=== PATIENT | female | born 1960 | race Caucasian/White ===

== ENCOUNTER → 2017-04-26 | Outpatient (CLI) | payer BC ==
--- NOTE | 2017-04-27 07:09 | MM ---
Reason for exam: screening (asymptomatic). Last mammogram was performed 1 year ago. History: Family history of breast cancer in mother. Physical Findings: A clinical breast exam by your physician is recommended on an annual basis and results should be correlated with mammographic findings. MG Screening Mammo Implant/CAD Bilateral CC and MLO view(s) were taken. Prior study comparison: April 23, 2016, bilateral MG screening mammo implant/CAD. December 06, 2013, mammogram, performed at [facility]. There are scattered fibroglandular densities. Bilateral breast prothesis. No significant changes when compared with prior studies. ASSESSMENT: Benign, BI-RAD 2 RECOMMENDATION: Routine screening mammogram of both breasts in 1 year.
== END | disposition home or self-care (01) ==
LOC: RADMAMWWP 06:46
PROVIDERS: ATTEND Family Medicine
DX: Z12.31 Encounter for screening mammogram for malignant neoplasm of breast (principal)

== ENCOUNTER 2018-02-11 08:20 | Day surgery (SDC) | payer BC ==
[2018-02-10 08:24] VITALS: BMI 31.6
[~2018-02-11 08:20] MED LIST: LACTATED RINGERS 1,000 ML IV SCH
[2018-02-11 09:30] VITALS: TEMP 97.4
[2018-02-11 09:40] LABS: Glucose,Whole Blood 92 mg/dL (75-99)
[2018-02-11] MEDS ORDERED: LIDOCAINE 1% 20 ML VIAL (10MG/ML) FOR IV START INTRADERMA ONE (09:41)
[2018-02-11] MEDS ORDERED: PROPOFOL 10 MG/ML 20 ML VIAL IV ONE (10:02)
--- NOTE | 2018-02-11 10:21 | P.PCN ---
Date of Procedure: 02/11/18 Procedure(s) Performed: BRIEF HISTORY: Patient is a 57-year-old pleasant white female, scheduled for an elective colonoscopy as a part of screening for colorectal neoplasia. PROCEDURE PERFORMED: Colonoscopy. PREOPERATIVE DIAGNOSIS: Screening for colon cancer. IV sedation per Anesthesia. PROCEDURE: After informed consent was obtained, the patient, was brought into the endoscopy unit. IV sedation was administered by Anesthesia under continuous monitoring. Digital rectal examination was normal. Initially the Olympus CF- 160 flexible video colonoscope was then inserted in the rectum, gradually advanced into the cecum without any difficulty. Careful examination was performed as the scope was gradually being withdrawn. Ileocecal valve and the appendiceal orifice were visualized and appeared normal. Prep was excellent. Mucosa of the cecum, ascending colon, transverse colon, descending colon, sigmoid colon, and rectum appeared normal. Retroflexion was performed in the rectum and no lesions were seen. The patient tolerated the procedure well. IMPRESSION: Normal-appearing colon from rectum to cecum with no evidence of colorectal neoplasia. RECOMMENDATIONS: Findings of this examination were discussed with the patient as well as a family. She was advised to have a repeat screening colonoscopy in 10 years..
[2018-02-11 10:27] LABS: Glucose,Whole Blood 85 mg/dL (75-99)
[2018-02-11 10:33] VITALS: RESP 18
[2018-02-11 10:47] VITALS: BP 116/78; PULSE 75
== END 2018-02-11 11:08 | disposition home or self-care (01) ==
LOC: ORWHC2ENDO 08:20
PROVIDERS: ATTEND Internal Medicine Gastroenterology
DX: Z12.11 Encounter for screening for malignant neoplasm of colon (principal); I25.10 Atherosclerotic heart disease of native coronary artery without angina pectoris; I10 Essential (primary) hypertension; E78.5 Hyperlipidemia, unspecified; E11.9 Type 2 diabetes mellitus without complications; F39 Unspecified mood [affective] disorder; Z79.84 Long term (current) use of oral hypoglycemic drugs; Z79.899 Other long term (current) drug therapy
CPT/HCPCS: 81025; G0121; J2704

== ENCOUNTER → 2018-04-29 | Outpatient (CLI) | payer BC ==
--- NOTE | 2018-05-03 08:16 | MM ---
Reason for exam: screening (asymptomatic). Last mammogram was performed 1 year ago. History: Patient is postmenopausal. Family history of breast cancer in mother. Silicone gel implants, 2011. Physical Findings: A clinical breast exam by your physician is recommended on an annual basis and results should be correlated with mammographic findings. MG 3D Screen Mammo Imp/Cad Bilateral CC, MLO, and ID view(s) were taken. Prior study comparison: April 26, 2017, bilateral MG screening mammo implant/CAD. April 23, 2016, bilateral MG screening mammo implant/CAD. There are scattered fibroglandular densities. There is no discrete abnormality. Bilateral subpectoral implants redemonstrated. ASSESSMENT: Benign, BI-RAD 2 RECOMMENDATION: Routine screening mammogram of both breasts in 1 year.
== END | disposition home or self-care (01) ==
LOC: RADMAMWWP 12:27
PROVIDERS: ATTEND Family Medicine
DX: Z12.31 Encounter for screening mammogram for malignant neoplasm of breast (principal)
CPT/HCPCS: 77063; 77067

== ENCOUNTER → 2019-07-10 | Outpatient (CLI) | payer BC ==
--- NOTE | 2019-07-11 11:02 | MM ---
Reason for exam: screening (asymptomatic). Last mammogram was performed 1 year and 2 months ago. History: Patient is postmenopausal. Family history of breast cancer in mother. Silicone gel implants, 2011. MG Screening Mammo Implant/CAD Bilateral CC and MLO view(s) were taken. Prior study comparison: April 29, 2018, bilateral MG 3d screen mammo imp/cad. April 26, 2017, bilateral MG screening mammo implant/CAD. The breast tissue is heterogeneously dense. This may lower the sensitivity of mammography. Bilateral breast prothesis. No significant new finding when compared with prior studies. ASSESSMENT: Benign, BI-RAD 2 RECOMMENDATION: Follow-up diagnostic mammogram of both breasts in 1 year.
== END | disposition home or self-care (01) ==
LOC: RADMAMWWP 06:49
PROVIDERS: ATTEND Family Medicine
DX: Z12.31 Encounter for screening mammogram for malignant neoplasm of breast (principal)
CPT/HCPCS: 77067

== ENCOUNTER → 2020-10-11 | Outpatient (CLI) | payer BC ==
--- NOTE | 2020-10-15 10:47 | MM ---
Reason for exam: screening (asymptomatic). Last mammogram was performed 1 year and 3 months ago. History: Patient is postmenopausal. Family history of breast cancer in mother. Silicone gel implants, 2011. Physical Findings: A clinical breast exam by your physician is recommended on an annual basis and results should be correlated with mammographic findings. MG Screening Mammo Implant/CAD Bilateral CC, MLO, and ID view(s) were taken. Prior study comparison: July 10, 2019, bilateral MG screening mammo implant/CAD. April 29, 2018, bilateral MG 3d screen mammo imp/cad. There are scattered fibroglandular densities. Bilateral retropectoral silicone implants. No significant changes when compared with prior studies. ASSESSMENT: Negative, BI-RAD 1 RECOMMENDATION: Routine screening mammogram of both breasts in 1 year.
== END | disposition home or self-care (01) ==
LOC: RADMAMWWP 07:04
PROVIDERS: ATTEND Family Medicine
DX: Z12.31 Encounter for screening mammogram for malignant neoplasm of breast (principal)
CPT/HCPCS: 77067

== ENCOUNTER → 2021-11-28 | Outpatient (CLI) | payer BC ==
--- NOTE | 2021-12-01 12:04 | MM ---
Reason for exam: screening (asymptomatic). Last mammogram was performed 1 year and 2 months ago. History: Patient is postmenopausal. Family history of breast cancer in mother. Silicone gel implants, 2011. Physical Findings: A clinical breast exam by your physician is recommended on an annual basis and results should be correlated with mammographic findings. MG Screening Mammo Implant/CAD Bilateral CC, MLO, and ID view(s) were taken. Prior study comparison: October 11, 2020, bilateral MG screening mammo implant/CAD. July 10, 2019, bilateral MG screening mammo implant/CAD. The breast tissue is heterogeneously dense. This may lower the sensitivity of mammography. Bilateral breast prothesis. No significant changes when compared with prior studies. ASSESSMENT: Benign, BI-RAD 2 RECOMMENDATION: Routine screening mammogram of both breasts in 1 year.
== END | disposition home or self-care (01) ==
LOC: RADMAMWWP 07:01
PROVIDERS: ATTEND Family Medicine
DX: Z12.31 Encounter for screening mammogram for malignant neoplasm of breast (principal)
CPT/HCPCS: 77067

== ENCOUNTER → 2021-11-29 | Outpatient (CLI) | payer BC ==
--- NOTE | 2021-11-29 13:49 | MR ---
EXAMINATION TYPE: MR cspine/lspine wo con DATE OF EXAM: 11/29/2021 COMPARISON: None HISTORY: Weakness/cold in right hand/fingers for 6 months. Low back pain/ coldness that radiates down left leg for 4 months. Lipoma far lateral right side of back. TECHNIQUE: Multiplanar, multisequence imaging of the lumbar spine is performed without IV contrast. FINDINGS: The craniovertebral junction relationships and prevertebral soft tissues are normal. The cervical vertebral segments are normal in height and alignment and there is no fracture or sublux ation. The disc spaces are well-maintained in height there is no significant degenerative disc. There is mil d broad-based disc bulge and spondylosis C5-6 level resulting in mild mass effect on the ventral aspe ct of thecal sac. Secondary to disc bulge and mild degenerative change of the uncovertebral joint, th ere is mild neural foraminal stenosis at C5-6 bilaterally left greater than right There is no cervical stenosis in the cervical cord is normal in size and signal intensity IMPRESSION: 1. Mild degenerative disc disease at the C5-6 level as described above. 2. No significant degenerative disc disease or focal disc herniation 3. No cervical stenosis or cervical cord abnormality. 4. Cervical vertebral segments are normal in height and alignment.
== END | disposition home or self-care (01) ==
LOC: RADMRIMAIN 12:02
PROVIDERS: ATTEND Family Medicine
DX: D17.1 Benign lipomatous neoplasm of skin and subcutaneous tissue of trunk (principal); M50.322 Other cervical disc degeneration at C5-C6 level
CPT/HCPCS: 72141; 72148

== ENCOUNTER 2022-04-17 18:43 | Observation (INO) | payer BC ==
[2022-04-17] MEDS ORDERED: ASPIRIN 81 MG PO STA (19:38)
--- NOTE | 2022-04-17 19:42 | ED ---
General Adult HPI - General Chief complaint: Recheck/Abnormal Lab/Rx Stated complaint: Sent by post MRI Time Seen by Provider: 04/17/22 19:07 Source: patient, family Mode of arrival: wheelchair Limitations: no limitations - History of Present Illness Initial comments: Dictation was produced using [employer] dictation software. please excuse any gram matical, word or spelling errors. Chief Complaint: 61-year-old female presents emergency department for strokelike symptoms History of Present Illness: Is a 61-year-old female she presents to the emergency room for strokelike symptoms. Patient has a history of diabetes, dyslipidemia and hypertension. Starting yesterday patient was having slurred speech. This morning her slurred speech was significantly worse. She states her primary care doctor where she had a stat CT and stat MRI ordered by primary care doctor. Daughter is at the bedside report that patient had significantly noticeable slurred speech. Patient has no history of CVA. Daughter is feeling patient still has mildlyslurred speech though not as significant as earlier today. There is no history of extremity issue, aphasia, ataxia or facial droop. After the MRI she was directed to come to the emergency room until MRI results were made available. The ROS documented in this emergency department record has been reviewed and confirmed by me. Those systems with pertinent positive or negative responses have been documented in the HPI. All other systems are other negative and/or noncontributory. PHYSICAL EXAM: General Impression: Alert and oriented x3, not in acute distress HEENT: Normocephalic atraumatic, extra-ocular movements intact, pupils equal and reactive to light bilaterally, mucous membranes moist. Cardiovascular: Heart regular rate and rhythm Chest: Able to complete full sentences, no retractions, no tachypnea Abdomen: abdomen soft, non-tender, non-distended, no organomegaly Musculoskeletal: Pulses present and equal in all extremities, no peripheral edema Motor: no focal deficits noted Neurological: CN II-XII grossly intact, no focal motor or sensory deficits noted, NIH 0 Skin: Intact with no visualized rashes Psych: Normal affect and mood ED course: 61-year-old female presents to the emergency department clinical presentation suspicious for transient ischemic attack. vital signs upon arrival are within acceptable limits. Patient has no focal neurologic deficits at the bedside. MRI was reviewed and showed no acute findings. CBC and BMP unremarkable. Patient be admitted for neurology consultation. She is given 324 mg of aspirin. Case discussed with Dr. Marquez was went except patient's Behalf of [facility], [facility]. - Related Data Home Medications Medication Instructions Recorded Confirmed ALPRAZolam [Xanax] 1 mg PO HS 02/10/18 04/17/22 Atorvastatin [Lipitor] 10 mg PO DAILY 02/10/18 04/17/22 lisinopriL [Zestril] 2.5 mg PO DAILY 02/10/18 04/17/22 traZODone HCL [Desyrel] 200 mg PO HS 02/10/18 04/17/22 Dapagliflozin/Metformin HCl 1 tab PO DAILY 04/17/22 04/17/22 [Xigduo Xr 10 mg-1,000 mg Tab] Meloxicam [Mobic] 7.5 mg PO BID 04/17/22 04/17/22 Allergies Allergy/AdvReac Type Severity Reaction Status Date / Time No Known Allergies Allergy Verified 04/17/22 20:09 Review of Systems ROS Statement: Those systems with pertinent positive or pertinent negative responses have been documented in the HPI. ROS Other: All systems not noted in ROS Statement are negative. Past Medical History Past Medical History: Diabetes Mellitus, Hyperlipidemia, Hypertension, Myocardial Infarction ([place]) Additional Past Medical History / Comment(s): "silent mi" Last Myocardial Infarction Date:: unknown History of Any Multi-Drug Resistant Organisms: None Reported Past Surgical History: Breast Surgery, Tubal Ligation Additional Past Surgical History / Comment(s): benign cyst on cervix removed Past Anesthesia/Blood Transfusion Reactions: No Reported Reaction Past Psychological History: Anxiety Past Alcohol Use History: Occasional Past Drug Use History: None Reported - Past Family History Mother Family Medical History: Cancer Additional Family Medical History / Comment(s): breast General Exam Limitations: no limitations Course Vital Signs 04/17/22 18:44 Pulse Rate 65 Respiratory 18 Rate Blood Pressure 122/81 O2 Sat by Pulse 97 Oximetry Medical Decision Making - Lab Data Result diagrams: 04/17/22 20:21 04/17/22 20:21 Disposition Clinical Impression: TIA (transient ischemic attack) Disposition: ADMITTED IP TO THIS [facility] Condition: Fair Decision Time: 20:52
[2022-04-17] MEDS ORDERED: SODIUM CHLORIDE 0.9% 1,000 ML IV SCH (20:15)
[2022-04-17 20:39] LABS: African American GFR (CKD) >90 (>60 ml/min/1.73 sqM); Anion Gap 10 mmol/L; Blood Urea Nitrogen 23 mg/dL (7-17); Calcium 9.1 mg/dL (8.4-10.2); Carbon Dioxide 23 mmol/L (22-30); Chloride 104 mmol/L (98-107); Glucose 118 mg/dL (74-99); Non-African American GFR(CKD) >90 (>60 ml/min/1.73 sqM); Potassium 3.9 mmol/L (3.5-5.1); Sodium 137 mmol/L (137-145)
[2022-04-17 20:47] LABS: Basophils % (A) 1 %; Eosinophils # (A) 0.1 k/uL (0-0.7); Eosinophils % (A) 2 %; HCT 43.2 % (34.0-46.0); HGB 14.1 gm/dL (11.4-16.0); Lymphocytes # (A) 1.9 k/uL (1.0-4.8); Lymphocytes % (A) 29 %; MCH 31.2 pg (25.0-35.0); MCHC 32.7 g/dL (31.0-37.0); MCV 95.6 fL (80.0-100.0); Mean Platelet Volume 7.4; Monocytes # (A) 0.2 k/uL (0-1.0); Monocytes % (A) 4 %; Neutrophils # (A) 4.1 k/uL (1.3-7.7); Neutrophils % (A) 62 %; Platelet Count 256 k/uL (150-450); RBC 4.52 m/uL (3.80-5.40); RDW 12.8 % (11.5-15.5); WBC 6.6 k/uL (3.8-10.6)
[2022-04-17 20:53] LABS: INR 0.9 (<1.2); Partial Thromboplastin Time 22.1 sec (22.0-30.0); Prothrombin Time 9.9 sec (9.0-12.0)
[2022-04-17] MEDS ORDERED: ALPRAZolam 1 MG TAB PO SCH (23:30)
[2022-04-17] MEDS ORDERED: traZODone HCL 100 MG TAB PO SCH (23:30)
--- NOTE | 2022-04-18 00:37 | P.HPIM ---
History of Present Illness H&P Date: 04/17/22 The patient is a 61-year-old female with a PMH of type II DM, hypertension, hyperlipidemia, coronary artery disease status post [place], spinal DJD, carpal tunnel syndrome who presents to the emergency room for slurred speech. The history is supplemented by the daughters at the bedside. The patient's family members reports that they have noticed a gradual decline in the patient over the past 3 months. Patient reports diffuse weakness, new onset left foot drop, poor balance with multiple falls, occasional slurring of her speech, and occasional right facial droop. The family reports that they noticed her speech was more slurred than usual this morning, for which she was seen at her PCPs office who immediately ordered a brain MRI. The report was discussed with the physician on-call for her PCP who advised her to go to the emergency room. Patient also reports an unspecified amount of weight loss over the past 3 months. Denies headaches, visual disturbances, numbness, or tingling. Reports following with a PM and R physician as well as an orthopedic surgeon for planned spinal surgeries for long-standing DJD of her spine. Reports also having seen a neurologist as an outpatient 1-2 months ago for her left foot drop which she reports was deemed secondary to spinal nerve impingement. Denies any acute lower back pain. Reports long-standing back pain which is unchanged, and rated as 0 out of 10 at the time of interview. Also denied focal weakness. Denies chest discomfort, palpitations, shortness of breath, nausea, vomiting, fever, chills. Brain MRI revealed no evidence of infarct with a minimal cerebellar tonsillar ectopia noted. NIH score in the emergency room was 0. Patient was given aspirin. Review of systems: Pertinent positives and negatives as discussed in HPI, a complete review of systems was performed and all other systems are negative. Physical examination: General: non toxic, no distress, appears at stated age, obese Derm: no unusual rashes/lesions no unusual ecchymoses, warm, dry Head: atraumatic, normocephalic, symmetric Eyes: EOMI, no lid lag, anicteric sclera, pupils equal round reactive to light ENT: Nose and ears atraumatic, no thrush, no pharyngeal erythema Neck: No thyromegaly, no cervical lymphadenopathy, trachea midline, supple Mouth: no lip lesion, mucus membranes moist Cardiovascular: S1S2 reg, no murmur, positive posterior tibial pulse bilateral, no edema, capillary refill less than 2 seconds Lungs: CTA bilateral, no rhonchi, no rales , no accessory muscle use Abdominal: soft, nontender to palpation, no guarding, no appreciable organomegaly, normal bowel sounds Ext: no gross muscle atrophy, muscle strength 3/5 RUE, 4/5 LUE, 3+/5 matti LEs, left foot drop Neuro: CN II-XI grossly intact except for mild R facial droop, light touch intact all 4 extremities, finger to nose within normal limits Psych: Alert, oriented, appropriate affect Assessment/plan Multiple neurological complaints including left foot drop, facial asymmetry, slurred speech -Broad differentials including demyelinating syndromes versus possible vasculit is in setting of weight loss -Neurology consult -Obtain ESR/CRP -Check TRIXIE -PT consult Chronic conditions: HTN, HLD, Type 2 DM -C/w home meds -BERTRAM with FS DVT prophylaxis -Heparin subq The patient is admitted with an anticipated less than 2 midnight stay for evaluation of slurred speech CODE STATUS: Full Code Discussed with: Patient Anticipated discharge date: in am Anticipated discharge place: Home Past Medical History Past Medical History: Diabetes Mellitus, Hyperlipidemia, Hypertension, Myocardial Infarction ([place]) Additional Past Medical History / Comment(s): "silent mi" Last Myocardial Infarction Date:: unknown History of Any Multi-Drug Resistant Organisms: None Reported Past Surgical History: Breast Surgery, Tubal Ligation Additional Past Surgical History / Comment(s): benign cyst on cervix removed Past Anesthesia/Blood Transfusion Reactions: No Reported Reaction Past Psychological History: Anxiety Past Alcohol Use History: Occasional Past Drug Use History: None Reported - Past Family History Mother Family Medical History: Cancer Additional Family Medical History / Comment(s): breast Medications and Allergies Home Medications Medication Instructions Recorded Confirmed Type ALPRAZolam [Xanax] 1 mg PO HS 02/10/18 04/17/22 History Atorvastatin [Lipitor] 10 mg PO DAILY 02/10/18 04/17/22 History lisinopriL [Zestril] 2.5 mg PO DAILY 02/10/18 04/17/22 History traZODone HCL [Desyrel] 200 mg PO HS 02/10/18 04/17/22 History Dapagliflozin/Metformin HCl 1 tab PO DAILY 04/17/22 04/17/22 History [Xigduo Xr 10 mg-1,000 mg Tab] Meloxicam [Mobic] 7.5 mg PO BID 04/17/22 04/17/22 History Allergies Allergy/AdvReac Type Severity Reaction Status Date / Time No Known Allergies Allergy Verified 04/17/22 20:09 Physical Exam Vitals: Vital Signs Pulse Resp BP Pulse Ox 04/17/22 21:52 81 18 134/74 97 04/17/22 18:44 65 18 122/81 97 Intake and Output 04/17/22 04/17/22 04/17/22 06:59 14:59 22:59 Other: Weight 160 kg Results CBC & Chem 7: 04/17/22 20:21 04/17/22 20:21 Labs: Abnormal Lab Results - Last 24 Hours (Table) 04/17/22 Range/Units 20:21 BUN 23 H (7-17) mg/dL Creatinine 0.47 L (0.52-1.04) mg/dL Glucose 118 H (74-99) mg/dL
[2022-04-18 07:28] LABS: Glucose,Whole Blood 127 mg/dL (75-99)
[2022-04-18] MEDS: INSULIN ASPART (NovoLOG) 100 UNIT/ML VIAL SQ SCH ×3 (07:37→16:55)
[2022-04-18 08:20] VITALS: RESP 16; TEMP 97.9
[2022-04-18 08:55] LABS: Chol/HDL Ratio 2.11 Ratio; LDL Cholesterol,Calculated 63.4 mg/dL (0.0-131.0)
[2022-04-18] MEDS ORDERED: ATORVASTATIN 10 MG TAB PO SCH (09:00)
[2022-04-18] MEDS ORDERED: ASPIRIN 81 MG PO SCH (09:00)
[2022-04-18 11:56] LABS: Glucose,Whole Blood 128 mg/dL (75-99)
[2022-04-18 13:38] VITALS: BP 120/79; PULSE 68
--- NOTE | 2022-04-18 14:40 | US ---
EXAMINATION TYPE: US carotid duplex BILAT DATE OF EXAM: 04/18/2022 COMPARISON: NONE CLINICAL HISTORY: TIA. EXAM MEASUREMENTS: RIGHT: Peak Systolic Velocity (PSV) cm/sec ----- Right CCA: 89.0 ----- Right ICA: 79.9 ----- Right ECA: 115.0 ICA/CCA ratio: 0.90 RIGHT: End Diastole cm/sec ----- Right CCA: 26.0 ----- Right ICA: 21.4 ----- Right ECA: 17.2 LEFT: Peak Systolic Velocity (PSV) cm/sec ----- Left CCA: 78.6 ----- Left ICA: 181.0 ----- Left ECA: 107.0 ICA/CCA ratio: 2.3 LEFT: End Diastole cm/sec ----- Left CCA: 18.9 ----- Left ICA: 67.8 ----- Left ECA: 11.1 VERTEBRALS (direction of flow): Right Vertebral: Antegrade Left Vertebral: Antegrade Rhythm: Normal No significant stenosis seen. Elevated left ICA velocities are felt to be due to tortuousity. IMPRESSION: There is antegrade flow in the vertebral arteries. The images and measurements suggest less than 20% stenosis in both internal carotid arteries. Criteria for Assigning % of Stenosis / Diameter reduction (Estimation based on the indirect measurements of the internal carotid artery velocities (ICA PSV). 1. Normal (no stenosis)=ICA PSV < 125 cm/s: ratio < 2.0: ICA EDV<40 cm/s. 2. Less than 50% stenosis=ICA PSV < 125 cm/s: ratio < 2.0: ICA EDV<40 cm/s. 3. 50 to 69% stenosis=ICA PSV of 125 to 230 cm/s: ration 2.0 ? 4.0: ICA EDV 40-100 cm/s. 4. Greater than 70% stenosis to near occlusion= ICA PSV > 230 cm/s: ratio > 4.0: ICA EDV > 100 cm/s. 5. Near occlusion= ICA PSV velocities may be low or undetectable: variable ratio and ICA EDV. 6. Total occlusion=unable to detect flow.
--- NOTE | 2022-04-18 16:25 | P.PN ---
Subjective Progress Note Date: 04/18/22 History of Present Illness per H&P The patient is a 61-year-old female with a PMH of type II DM, hypertension, hyperlipidemia, coronary artery disease status post [place], spinal DJD, carpal tunnel syndrome who presents to the emergency room for slurred speech. The history is supplemented by the daughters at the bedside. The patient's family members reports that they have noticed a gradual decline in the patient over the past 3 months. Patient reports diffuse weakness, new onset left foot drop, poor balance with multiple falls, occasional slurring of her speech, and occasional right facial droop. The family reports that they noticed her speech was more slurred than usual this morning, for which she was seen at her PCPs office who immediately ordered a brain MRI. The report was discussed with the physician on-call for her PCP who advised her to go to the emergency room. Patient also reports an unspecified amount of weight loss over the past 3 months. Denies headaches, visual disturbances, numbness, or tingling. Reports following with a PM and R physician as well as an orthopedic surgeon for planned spinal surgeries for long-standing DJD of her spine. Reports also having seen a neurologist as an outpatient 1-2 months ago for her left foot drop which she reports was deemed secondary to spinal nerve impingement. Denies any acute lower back pain. Reports long-standing back pain which is unchanged, and rated as 0 out of 10 at the time of interview. Also denied focal weakness. Denies chest discomfort, palpitations, shortness of breath, nausea, vomiting, fever, chills. Brain MRI revealed no evidence of infarct with a minimal cerebellar tonsillar ectopia noted. NIH score in the emergency room was 0. Patient was given aspirin. Interval history: Patient was examined at the bedside. She is alert oriented 3. She denies any chest pain or shortness of breath. Physical examination: General: non toxic, no distress, appears at stated age Derm: warm, dry Head: atraumatic, normocephalic, symmetric Eyes: EOMI, no lid lag, anicteric sclera Mouth: no lip lesion, mucus membranes moist Cardiovascular: S1S2 reg, no murmur, positive posterior tibial pulse bilateral, Lungs: CTA bilateral, no rhonchi, no rales , no accessory muscle use Abdominal: soft, nontender to palpation, no guarding, no appreciable organomegaly Ext: no gross muscle atrophy, no edema, no contractures Neuro: CN II-XI grossly intact, no focal neuro deficits Psych: Alert, oriented, appropriate affect Assessment/plan #TIA -Patient presented with Slurred speech and left facial droop -Symptoms resolved -MRI without any evidence of stroke -2-D echo ordered -Carotid Doppler ordered -Neurology consult -Resume aspirin and statins -Normal CRP -Check TRIXIE -A1c 6.5 and LDL is 63 -PT consult #Chronic back pain with left foot drop -Patient scheduled for lumbar spine MRI with EMG as an outpatient on Wednesday #Type 2 diabetes mellitus -Controlled A1c is 6.5 #Hypertension -Controlled #Dyslipidemia DVT prophylaxis -Heparin subq CODE STATUS: Full Code Objective - Vital Signs Vital signs: Vital Signs Temp 97.9 F 04/18/22 13:37 Pulse 68 04/18/22 13:37 Resp 16 04/18/22 13:37 BP 120/79 04/18/22 13:37 Pulse Ox 99 04/18/22 13:37 FiO2 Intake & Output 04/17/22 04/18/22 04/18/22 18:59 06:59 18:59 Intake Total 118 Balance 118 Weight 160 kg 72.7 kg Intake: Oral 118 Other: Voiding Method Toilet Toilet # Voids 1 2 - Labs CBC & Chem 7: 04/17/22 20:21 04/17/22 20:21 Labs: Abnormal Lab Results - Last 24 Hours (Table) 04/16/22 04/17/22 04/18/22 Range/Units 20:21 20:21 01:30 BUN 23 H (7-17) mg/dL Creatinine 0.47 L (0.52-1.04) mg/dL Glucose 118 H (74-99) mg/dL POC Glucose (mg/dL) (75-99) mg/dL Hemoglobin A1c 6.5 H (0.0-6.0) % HDL Cholesterol 70.50 H (40.00-60.00) mg/dL 04/18/22 04/18/22 Range/Units 07:26 11:54 BUN (7-17) mg/dL Creatinine (0.52-1.04) mg/dL Glucose (74-99) mg/dL POC Glucose (mg/dL) 127 H 128 H (75-99) mg/dL Hemoglobin A1c (0.0-6.0) % HDL Cholesterol (40.00-60.00) mg/dL
[2022-04-18 16:40] LABS: Glucose,Whole Blood 109 mg/dL (75-99)
--- NOTE | 2022-04-18 18:03 | P.DS ---
Providers Date of admission: 04/17/22 20:03 Expected date of discharge: 04/18/22 Attending physician: Quinton Marquez MD Consults: 04/17/22 20:03 Consult Physician Routine Consulting Provider: Osito Silva Consult Reason/Comments: tia Do you want consulting provider notified?: Yes Primary care physician: [facility] Course: History of Present Illness per H&P The patient is a 61-year-old female with a PMH of type II DM, hypertension, hyperlipidemia, coronary artery disease status post CO, spinal DJD, carpal tunnel syndrome who presents to the emergency room for slurred speech. The history is supplemented by the daughters at the bedside. The patient's family members reports that they have noticed a gradual decline in the patient over the past 3 months. Patient reports diffuse weakness, new onset left foot drop, poor balance with multiple falls, occasional slurring of her speech, and occasional right facial droop. The family reports that they noticed her speech was more slurred than usual this morning, for which she was seen at her PCPs office who immediately ordered a brain MRI. The report was discussed with the physician on-call for her PCP who advised her to go to the emergency room. Patient also reports an unspecified amount of weight loss over the past 3 months. Denies headaches, visual disturbances, numbness, or tingling. Reports following with a PM and R physician as well as an orthopedic surgeon for planned spinal surgeries for long-standing DJD of her spine. Reports also having seen a neurologist as an outpatient 1-2 months ago for her left foot drop which she reports was deemed secondary to spinal nerve impingement. Denies any acute lower back pain. Reports long-standing back pain which is unchanged, and rated as 0 out of 10 at the time of interview. Also denied focal weakness. Denies chest discomfort, palpitations, shortness of breath, nausea, vomiting, fever, chills. Brain MRI revealed no evidence of infarct with a minimal cerebellar tonsillar ectopia noted. NIH score in the emergency room was 0. Patient was given aspirin. Interval history: Patient was examined at the bedside. She is alert oriented 3. She denies any chest pain or shortness of breath. Physical examination: General: non toxic, no distress, appears at stated age Derm: warm, dry Head: atraumatic, normocephalic, symmetric Eyes: EOMI, no lid lag, anicteric sclera Mouth: no lip lesion, mucus membranes moist Cardiovascular: S1S2 reg, no murmur, positive posterior tibial pulse bilateral, Lungs: CTA bilateral, no rhonchi, no rales , no accessory muscle use Abdominal: soft, nontender to palpation, no guarding, no appreciable organomegaly Ext: no gross muscle atrophy, no edema, no contractures Neuro: CN II-XI grossly intact, left foot drop. Left lower similar fasciculation Psych: Alert, oriented, appropriate affect Assessment/plan #Slurred speech, left lower extremity fasciculation with left foot drop -Patient presented with Slurred speech and left facial droop -Acute CVA has been ruled out -MRI without any evidence of stroke -2-D echo ordered--pending result -Carotid Doppler ordered without significant stenosis -Neurology concerned about the possibility of ALS versus mononeuritis multiplex -Neurology recommended outpatient neuromuscular specialist at [facility] or [facility] -Resume aspirin and statins -Normal CRP -Check TRIXIE -B12 pending -A1c 6.5 and LDL is 63 -Neurologist cleared the patient for discharge to follow-up with her physiatry is next Wednesday for EMG and possibly referral to a neuromuscular specialist -Patient's daughter was at the bedside all the questions was answered. #Chronic back pain with left foot drop -Patient scheduled for lumbar spine MRI with EMG as an outpatient on Wednesday -Workup in progress -Patient needs neuromuscular specialist referral #Type 2 diabetes mellitus -Controlled A1c is 6.5 #Hypertension -Controlled #Dyslipidemia DVT prophylaxis -Heparin subq Patient Condition at Discharge: Fair Plan - Discharge Summary New Discharge Prescriptions: New Aspirin 81 mg PO DAILY #30 tab Continue lisinopriL [Zestril] 2.5 mg PO DAILY Atorvastatin [Lipitor] 10 mg PO DAILY traZODone HCL [Desyrel] 200 mg PO HS ALPRAZolam [Xanax] 1 mg PO HS Dapagliflozin/Metformin HCl [Xigduo Xr 10 mg-1,000 mg Tab] 1 tab PO DAILY Meloxicam [Mobic] 7.5 mg PO BID Discharge Medication List ALPRAZolam [Xanax] 1 mg PO HS 02/10/18 [History] Atorvastatin [Lipitor] 10 mg PO DAILY 02/10/18 [History] lisinopriL [Zestril] 2.5 mg PO DAILY 02/10/18 [History] traZODone HCL [Desyrel] 200 mg PO HS 02/10/18 [History] Dapagliflozin/Metformin HCl [Xigduo Xr 10 mg-1,000 mg Tab] 1 tab PO DAILY 04/17/22 [History] Meloxicam [Mobic] 7.5 mg PO BID 04/17/22 [History] Aspirin 81 mg PO DAILY #30 tab 04/18/22 [Rx] Follow up Appointment(s)/Referral(s): Abel Baker MD [Primary Care Provider] - 1-2 days Patient Instructions/Handouts: Transient Ischemic Attack (DC)
[2022-04-19 05:41] LABS: Protein, Total 6.4 g/dL (6.2-8.2)
[2022-04-19 05:44] LABS: Immunoglobulin M 44.5 mg/dL (40.0-280.0)
--- NOTE | 2022-04-19 11:28 | CA ---
Transthoracic Echo Report Name: Trinidad Chappell Age: 61 Gender: F : 1960 Exam Date: 04/18/2022 13:57 Exam Location: [facility] Ht (in): 62 Wt (lb): 160 Ordering Physician: Quinton Marquez MD Attending/Referring Phys: Switch Technician Maryjane Choi RDCS Procedure CPT: Indications: tia Cardiac Hx: Breast inplants, tia Technical Quality: Fair Contrast 1: Total Dose (mL): Contrast 2: N/A Total Dose (mL): MEASUREMENTS (Male / Female) Normal Values 2D ECHO LV Diastolic Diameter PLAX 4.0 cm 4.2 - 5.9 / 3.9 - 5.3 cm LV Systolic Diameter PLAX 2.8 cm IVS Diastolic Thickness 1.1 cm 0.6 - 1.0 / 0.6 - 0.9 cm LVPW Diastolic Thickness 1.3 cm 0.6 - 1.0 / 0.6 - 0.9 cm LV Relative Wall Thickness 0.6 RV Internal Dim ED PLAX 2.5 cm LA Systolic Diameter LX 3.1 cm 3.0 - 4.0 / 2.7 - 3.8 cm M-MODE Aortic Root Diameter MM 2.8 cm LA Systolic Diameter MM 3.2 cm LA Ao Ratio MM 1.1 MV E Point Septal Separation 0.8 cm AV Cusp Separation MM 2.2 cm DOPPLER MV Area PHT 4.8 cm??? Mitral E Point Velocity 67.9 cm/s Mitral A Point Velocity 61.7 cm/s Mitral E to A Ratio 1.1 MV Deceleration Time 157.1 ms MV E' Velocity 6.5 cm/s Mitral E to MV E' Ratio 10.4 FINDINGS Left Ventricle Normal Left ventricular size, mild wall thickness, systolic function with no obvious regional wall motion abnormalities. Right Ventricle Normal right ventricular size and function. Right Atrium Normal right atrial size. Left Atrium Normal left atrial size. Mitral Valve Structurally normal mitral valve. Mild mitral regurgitation. Aortic Valve Trileaflet aortic valve. Tricuspid Valve Structurally normal tricuspid valve. Mild tricuspid regurgitation. Pulmonic Valve Pulmonic valve not well visualized. Pericardium Echo free space anterior to the right ventricle likely represents a fat pad. Aorta Aortic root and proximal ascending aorta not well visualized. CONCLUSIONS #1. Normal left ventricle size, but 2. Mild concentric left ventricle hypertrophy #3. Mild mitral and tricuspid regurgitation Previewed by: Dr. Dora Newby MD (Electronically Signed) Final Date: 19 April 2022 11:27
--- NOTE | 2022-04-20 17:02 | P.CNNES ---
History of Present Illness Consult date: 04/18/22 Requesting physician: Lei Sanchez Reason for Consult: TIA History of Present Illness: Patient is a 61-year-old female came to the hospital yesterday at 6:43 PM to rule out TIA. Patient's daughter was also present, and both of them provided with a history. Patient has developed left foot drop around December 2021. However in the last few months it has progressively got worse. She has fallen quite many times in last few months. In the last 3 months her health has been deteriorating. She had undergone right ulnar nerve decompression surgery on 04/01/2022. She claims that she also has carpal tunnel syndrome bilaterally. She also states that she has been scheduled for a back surgery for fusion but has not been scheduled yet. She has very poor balance and falls easily. She has been using a cane for last few months. Patient stated that she has been having some twitching of her eyelid muscles going on for last couple years (although patient's daughter believes it is more recent onset in the last few months). Sometimes she gets Sergio horses. Her left leg is always cold. Patient's family and patient herself has noticed some intermittent slurred speech, occasional right facial drooping. Patient's legs are so weak, that she has to manually lift her leg to go up steps. She has difficulty going up steps. Vital signs on arrival blood pressure 122/81 pulse rate 65 temperature 97.7. Blood tests revealed normal CBC, PT/PTT, normal electrolytes, BUN and creatinine are normal. C-reactive protein is normal <0.5, ESR 2. Patient had an MRI of the lumbar spine on 11/29/2021 which revealed multilevel degenerative disc disease mild from T12 through L5 and moderate to severe at the L5-S1 level. No lumbar disc herniation or spinal stenosis. Mild neural foraminal stenosis at L5-S1 level on the left. Mild osteoarthritis of the facet joints in the lower lumbar spine. MRI cervical spine without contrast 11/29/2021 revealed mild degenerative disc disease at C5 6 level. No significant degenerative disc disease or focal disc herniation. No cervical stenosis or cervical cord abnormality. I personally reviewed MRI of the cervical and lumbar spine and agree with the findings. No significant spinal stenosis. Patient has history of diabetes since she was in her 40s, for last 20 years. She has hypertension, hyperlipidemia. She is a nonsmoker drinks alcohol very occasionally. Review of Systems Positive for fatigue, weight loss, fasciculations, some dysarthria. No dysphagia. No difficulty breathing. She has muscle weakness, no problem with controlling urine. Patient has carpal tunnel syndrome. All other review of systems reviewed, unremarkable except as per HPI. Past Medical History Past Medical History: Diabetes Mellitus, Hyperlipidemia, Hypertension, Myocardial Infarction ([place]) Additional Past Medical History / Comment(s): "silent mi" Last Myocardial Infarction Date:: unknown History of Any Multi-Drug Resistant Organisms: None Reported Past Surgical History: Breast Surgery, Tubal Ligation Additional Past Surgical History / Comment(s): benign cyst on cervix removed Past Anesthesia/Blood Transfusion Reactions: No Reported Reaction Past Psychological History: Anxiety Past Alcohol Use History: Occasional Past Drug Use History: None Reported - Past Family History Mother Family Medical History: Cancer Additional Family Medical History / Comment(s): breast Medications and Allergies Home Medications Medication Instructions Recorded Confirmed Type ALPRAZolam [Xanax] 1 mg PO HS 02/10/18 04/17/22 History Atorvastatin [Lipitor] 10 mg PO DAILY 02/10/18 04/17/22 History lisinopriL [Zestril] 2.5 mg PO DAILY 02/10/18 04/17/22 History traZODone HCL [Desyrel] 200 mg PO HS 02/10/18 04/17/22 History Dapagliflozin/Metformin HCl 1 tab PO DAILY 04/17/22 04/17/22 History [Xigduo Xr 10 mg-1,000 mg Tab] Meloxicam [Mobic] 7.5 mg PO BID 04/17/22 04/17/22 History Aspirin 81 mg PO DAILY #30 tab 04/18/22 Rx Allergies Allergy/AdvReac Type Severity Reaction Status Date / Time No Known Allergies Allergy Verified 04/17/22 20:09 Physical Examination - Vital Signs Vital Signs: Vital Signs Temp Pulse Pulse Resp BP BP BP 04/18/22 13:37 97.9 F 68 16 120/79 04/18/22 07:00 97.9 F 69 16 134/85 04/18/22 02:53 97.8 F 66 18 108/69 04/17/22 22:39 97.7 F 79 16 129/81 04/17/22 21:52 81 18 134/74 04/17/22 18:44 65 18 122/81 Pulse Ox 04/18/22 13:37 99 04/18/22 07:00 100 04/18/22 02:53 96 04/17/22 22:39 98 04/17/22 21:52 97 04/17/22 18:44 97 Intake and Output 04/18/22 04/18/22 04/18/22 06:59 14:59 22:59 Intake Total 118 Balance 118 Intake: Oral 118 Other: Voiding Method Toilet Toilet # Voids 1 2 Weight 72.7 kg Patient is a late middle aged female, in no acute distress. Patient is alert awake oriented to time place and person. Speech is very minim ally dysarthric more for lingual and pharyngeal, less for labial. No aphasia. Patient can name and repeat very well. Attention, concentration and fund of knowledge is adequate. On cranial examination, pupils are equal, round and reacting to light, visual frost are full on confrontation, extraocular muscles are intact with no nystagmus. Face is symmetric, tongue protrudes to the midline. Palatal elevation and sensation normal, hearing and shoulder shrug normal, facial sensation normal. No fasciculations noted in the tongue. On muscle strength testing, there is no pronator drift and the strength is (right/left) deltoid 5/5, biceps 5/5, triceps 5/5, cash applications associate 4-/4-. In the lower extremities hip flexion is 5/4, adduction 5/5, abduction 5/5, ankle dorsiflexion 5/2, inversion 5/5, peronei 5/0, plantar flexion 5/4-, toe extension 4/0. Deep tendon reflexes are (right/left) biceps 2+/2, brachioradialis 2+/2, triceps ---/2+, knee 3+/3+, ankles 2/2, plantars are flat bilaterally. Sensory to touch is equal with no neglect. Cerebellar function showed no ataxia for [id number] testing. Tone of muscles normal and bulk of muscles grossly normal. Patient has visible fasciculations over bilateral quadriceps, and calf muscles. No fasciculations noted in the upper extremities. Gait not checked. On general examination, there is no carotid bruit or murmur, S1-S2 audible. Abd omen is soft nontender. No organomegaly, bowel sounds present. Chest is clear. Peripheral pulses are present. No edema. Results - Laboratory Findings CBC and BMP: 04/17/22 20:21 04/17/22 20:21 Abnormal Lab Findings: Abnormal Labs 04/16/22 04/17/22 04/18/22 20:21 20:21 01:30 BUN 23 H Creatinine 0.47 L Glucose 118 H POC Glucose (mg/dL) Hemoglobin A1c 6.5 H HDL Cholesterol 70.50 H 04/18/22 04/18/22 07:26 11:54 BUN Creatinine Glucose POC Glucose (mg/dL) 127 H 128 H Hemoglobin A1c HDL Cholesterol Assessment and Plan Assessment: * 61-year-old female presents with a three-month history of progressive decline, left foot drop and generalized weakness, difficulty going up steps, and more recent onset of intermittent slurring of speech. Examination revealed asymmetric weakness, most involving the left lower extremity distally. Also revealed fasciculations involving multiple myotomes of proximal and distal muscles of lower limbs (not involving the upper extremities or the tongue muscles), although patient is noticing frequent twitching of her eyelid muscles. Examination showed brisk reflexes in the upper and lower limbs. 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 Differential also includes multifocal motor neuropathy, mononeuritis multiplex, although later two would not explain dysarthria. * Diabetes Plan: * Recommend patient undergo EMG and nerve conduction studies of upper and lower extremities including bulbar and thoracic EMG to evaluate for motor neuron disease versus other possibilities as mentioned. Patient should follow-up at neuromuscular department in [facility] or [facility]. * Carotid Doppler revealed antegrade flow in the vertebral arteries. Images in measurement suggest less than 20% stenosis in both ICAs. * MRI of brain from yesterday revealed no evidence of intracranial mass or a cute/subacute infarct. Minimal cerebellar tonsillar ectopia. I personally reviewed MRI with the findings. * Hemoglobin A1c 6.5 * Lipid panel with cholesterol 149, LDL 63, HDL 70 and triglycerides 75. * We will check B12, folate, quantitative immunoglobulins, immunofixation electrophoresis, TRIXIE to start with. Further testing may be carried out at the neuromuscular center. * Patient can be discharged and the blood test can be followed up as an outpatient. Discussed with primary physician. Also discussed with patient and her daughter in very detail. Addendum 04/20/2022: Her B12 is 907, folate 13.0, CK normal 79, TRIXIE negative. Quantitative immunoglobulins are normal. Serum protein electrophoresis and immunofixation electrophoresis pending.
[2022-04-21 15:42] LABS: Albumin 4.22 g/dL (3.80-4.90); Gamma Globulin 0.72 g/dL (0.70-1.50)
== END 2022-04-18 18:20 | disposition home or self-care (01) ==
LOC: EC 18:43 → 6NMEDSUR 20:03
PROVIDERS: ADMIT Internal Medicine; ATTEND Internal Medicine
DX: G45.9 Transient cerebral ischemic attack, unspecified (principal); R25.3 Fasciculation; M21.372 Foot drop, left foot; G89.29 Other chronic pain; M54.9 Dorsalgia, unspecified; E11.9 Type 2 diabetes mellitus without complications; I10 Essential (primary) hypertension; E78.5 Hyperlipidemia, unspecified; I25.10 Atherosclerotic heart disease of native coronary artery without angina pectoris; I25.2 Old myocardial infarction; M19.90 Unspecified osteoarthritis, unspecified site; G56.00 Carpal tunnel syndrome, unspecified upper limb; R29.6 Repeated falls; I08.1 Rheumatic disorders of both mitral and tricuspid valves; E66.9 Obesity, unspecified; Z68.29 Body mass index [BMI] 29.0-29.9, adult; M47.819 Spondylosis without myelopathy or radiculopathy, site unspecified; M51.36 Other intervertebral disc degeneration, lumbar region; M51.37 Other intervertebral disc degeneration, lumbosacral region; M48.07 Spinal stenosis, lumbosacral region; M50.322 Other cervical disc degeneration at C5-C6 level; R53.83 Other fatigue; R63.4 Abnormal weight loss; F41.9 Anxiety disorder, unspecified; Z79.899 Other long term (current) drug therapy; Z79.1 Long term (current) use of non-steroidal anti-inflammatories (NSAID); Z79.84 Long term (current) use of oral hypoglycemic drugs; Z79.82 Long term (current) use of aspirin; Z80.3 Family history of malignant neoplasm of breast
CPT/HCPCS: 99284; 36415; 93306; 80061; 80048; 85652; 82607; 82550; 82746; 85025; 85610; 85730; 86140; 82784 ×3; 84165; 86038; 86334; 83036; 93880; G0378 ×2

== ENCOUNTER → 2022-04-17 | Outpatient (CLI) | payer BC ==
--- NOTE | 2022-04-17 18:24 | MR ---
EXAMINATION TYPE: MR brain wo con DATE OF EXAM: 04/17/2022 5:16 PM COMPARISON: None. CLINICAL INDICATION:Female, 61 years old with history of Arnold-Chiari Syndrome; TECHNIQUE: Multi planar, multi sequence imaging was performed through the brain including: T1, T2, In version recovery, Diffusion weighted imaging, and gradient echo imaging. No gadolinium was given. FINDINGS: The burns-white junctions, ventricular system, and cisterns appear unremarkable. Midline structures sh ow no abnormality. Diffusion-weighted imaging shows no evidence of restricted diffusion. The suscepti bility weighted images do not reveal any evidence for micro-hemorrhage. Minimal cerebellar tonsillar ectopia up to 1-2 mm. The bone marrow signal is within normal limits. The paranasal sinuses and globes are unremarkable. IMPRESSION: No evidence of intracranial mass or acute/subacute infarct. Minimal cerebellar tonsillar ectopia.
== END | disposition home or self-care (01) ==
LOC: RADMRIMAIN 16:39
PROVIDERS: ATTEND Family Medicine
DX: R47.81 Slurred speech (principal); Q07.00 Arnold-Chiari syndrome without spina bifida or hydrocephalus
CPT/HCPCS: 70551

== ENCOUNTER 2022-09-20 09:25 | Emergency (ER) | payer BC, MEDICARE ==
--- NOTE | 2022-09-20 09:31 | ED ---
General Adult HPI - General Chief complaint: Fall Stated complaint: Fall Time Seen by Provider: 09/20/22 09:27 - History of Present Illness Initial comments: This is a 61-year-old female who presents emergency pertinent with a past medical history significant for ALS. Patient comes in today she states that she turned she lost her balance and fell hit the back of her head on the tub. Patient states the area is tender just behind the left ear. Patient denies any loss of consciousness. Patient denies being days. Patient denies any neck pain. Patient denies any numbness weakness. Patient denies any extremity injury. Patient denies any back chest injury. Patient denies any other problems at this time. Patient states at no time did she have any shortness of breath chest pain palpitations or lightheadedness or near syncopal episode. - Related Data Home Medications Medication Instructions Recorded Confirmed ALPRAZolam [Xanax] 1 mg PO HS 02/10/18 04/17/22 Atorvastatin [Lipitor] 10 mg PO DAILY 02/10/18 04/17/22 lisinopriL [Zestril] 2.5 mg PO DAILY 02/10/18 04/17/22 traZODone HCL [Desyrel] 200 mg PO HS 02/10/18 04/17/22 Dapagliflozin/Metformin HCl 1 tab PO DAILY 04/17/22 04/17/22 [Xigduo Xr 10 mg-1,000 mg Tab] Meloxicam [Mobic] 7.5 mg PO BID 04/17/22 04/17/22 Previous Rx's Medication Instructions Recorded Aspirin 81 mg PO DAILY #30 tab 04/18/22 Allergies Allergy/AdvReac Type Severity Reaction Status Date / Time codeine Allergy Unknown Verified 09/20/22 09:48 Review of Systems ROS Statement: Those systems with pertinent positive or pertinent negative responses have been documented in the HPI. ROS Other: All systems not noted in ROS Statement are negative. Past Medical History Past Medical History: Diabetes Mellitus, Hyperlipidemia, Hypertension, Myocardial Infarction ([place]) Additional Past Medical History / Comment(s): "silent mi" Last Myocardial Infarction Date:: unknown History of Any Multi-Drug Resistant Organisms: None Reported Past Surgical History: Breast Surgery, Tubal Ligation Additional Past Surgical History / Comment(s): benign cyst on cervix removed Past Anesthesia/Blood Transfusion Reactions: No Reported Reaction Past Psychological History: Anxiety Past Alcohol Use History: Occasional Past Drug Use History: None Reported - Past Family History Mother Family Medical History: Cancer Additional Family Medical History / Comment(s): breast General Exam - General Exam Comments Initial Comments: GENERAL: Patient is well-developed and well-nourished. Patient is nontoxic and well- hydrated and is in mild distress. ENT: Neck is soft and supple. No significant lymphadenopathy is noted. Oropharynx is clear. Moist mucous membranes. Neck has full range of motion without eliciting any pain. Patient has a slight contusion behind the left ear and it is tender to palpation EYES: The sclera were anicteric and conjunctiva were pink and moist. Extraocular movements were intact and pupils were equal round and reactive to light. Eyelids were unremarkable. PULMONARY: Unlabored respirations. Good breath sounds bilaterally. No audible rales rhonchi or wheezing was noted. CARDIOVASCULAR: There is a regular rate and rhythm without any murmurs gallops or rubs. ABDOMEN: Soft and nontender with normal bowel sounds. SKIN: Skin is clear with no lesions or rashes and otherwise unremarkable. NEUROLOGIC: Patient is alert and oriented x3. Cranial nerves II through XII are grossly intact. MUSCULOSKELETAL: Normal extremities with adequate strength and full range of motion. LYMPHATICS: No significant lymphadenopathy is noted PSYCHIATRIC: Normal psychiatric evaluation. Course Vital Signs 09/20/22 09:26 Temperature 98 F Pulse Rate 71 Respiratory 16 Rate Blood Pressure 140/83 O2 Sat by Pulse 95 Oximetry Medical Decision Making - Medical Decision Making I interpreted the CT of the C-spine and brain. CT of the brain shows no bleed no mass effect no masses. C-spine showed no acute fracture. Patient felt good enough to go home and daughter from there to help her. Disposition Clinical Impression: Fall, Contusion of head Disposition: HOME SELF-CARE Condition: Good Instructions (If sedation given, give patient instructions): Fall Prevention (ED) Is patient prescribed a controlled substance at d/c from ED?: No Referrals: Abel Baker MD [Primary Care Provider] - 1-2 days Time of Disposition: 11:08
[2022-09-20 09:48] VITALS: RESP 16
--- NOTE | 2022-09-20 10:48 | CT ---
EXAMINATION TYPE: CT brain cspine wo con CT DLP: 1400.3 mGycm, Automated exposure control for dose reduction was used. DATE OF EXAM: 09/20/2022 10:20 AM COMPARISON: MR brain 04/17/2022,'s MR C-spine 11/29/2021 CLINICAL INDICATION:Female, 61 years old with history of Trauma; Fall TECHNIQUE: Brain: Multiple axial CT images of the brain were obtained without IV contrast. Cspine: Axial CT images from the skull base to the inferior aspect of T2 we obtained without intraven ous contrast. Coronal and sagittal reformatted images were also reviewed. FINDINGS: Brain: Extra-axial spaces: No abnormal extra-axial fluid collections. Ventricular system: Within normal limits Cerebral parenchyma: No acute intraparenchymal hemorrhage or mass effect. The burns-white junction is well differentiated. Cerebellum: Unremarkable. Mass effect: No evidence of midline shift. Intracranial vasculature: unremarkable Soft tissues: Normal. Calvarium/osseous structures: No depressed skull fracture. Paranasal sinuses and mastoid air cells: Mild scattered mucosal thickening and or secretions. Visualized orbits: Orbital contents are intact. Cervical spine: Fracture: None. Osseous structures: Unremarkable Vertebral alignment: Within normal limits. Spinal canal/Neural Foramina: No evidence of significant spinal canal narrowing. No evidence for sign ificant neural foraminal stenosis. Neck soft tissues: Prevertebral soft tissues are within normal limits. Other: The airway is patent. The lung apices are clear. IMPRESSION: 1. No acute intracranial process. 2. No evidence of cervical spine fracture. 3. Mild multilevel degenerative disc disease.
[2022-09-20 11:18] VITALS: BP 140/78; PULSE 78; TEMP 98.2
== END 2022-09-20 11:17 | disposition home or self-care (01) ==
LOC: EC 09:25
DX: S00.93XA Contusion of unspecified part of head, initial encounter (principal); E11.9 Type 2 diabetes mellitus without complications; E78.5 Hyperlipidemia, unspecified; I10 Essential (primary) hypertension; I25.2 Old myocardial infarction; F41.9 Anxiety disorder, unspecified; Z88.5 Allergy status to narcotic agent; Z79.82 Long term (current) use of aspirin; Z79.899 Other long term (current) drug therapy; W01.198A Fall on same level from slipping, tripping and stumbling with subsequent striking against other object, initial encounter
CPT/HCPCS: 70450; 72125; 99284